=== PATIENT | male | born 1990 | race Two or more races ===

== ENCOUNTER 2021-10-30 00:47 | Emergency (ER) | payer MEDICAID, OTHER ==
[~2021-10-30] VITALS: Ht 175.3 cm; Wt 63.5 kg
[2021-10-30] MEDS ORDERED: IBUP800T26 PO (06:59)
[2021-10-30] MEDS ORDERED: KETOROLAC TROMETH 60MG/2ML VIAL IM ONE (07:00)
[2021-10-30 07:06] VITALS: BP 138/79
[2021-10-30] MEDS ORDERED: BACITRACIN INJ 50000 UNIT VIAL TOP ONE (07:45)
[2021-10-30] MEDS ORDERED: BACITRACIN-POLYMYXIN B TOPICAL OINT UD TOP ONE (08:00)
== END 2021-10-30 07:47 | disposition home or self-care (01) ==
LOC: ER 00:47
DX: M54.50 Low back pain, unspecified (principal); V89.2XXA Person injured in unspecified motor-vehicle accident, traffic, initial encounter; Y93.89 Activity, other specified; Y92.89 Other specified places as the place of occurrence of the external cause; Y99.8 Other external cause status
CPT/HCPCS: 72100; 96372; 99283; J1885